=== PATIENT | female | born 1995 | race Caucasian/White ===

== ENCOUNTER → 2023-07-26 08:59 | Outpatient (CLI) | payer OTHER, MEDICAID, SELFPAY ==
[2023-07-26 11:12] LABS: HIV 1 & 2 Ab/Ag 4th Gen Combo NEGATIVE (NEGATIVE)
[2023-07-27 05:13] LABS: RPR Screen Non Reactive (Non Reactive)
[2023-07-27 15:57] LABS: Hep C Virus Ab w/Reflex Quant NEGATIVE s/c (NEGATIVE)
== END ==
PROVIDERS: PCP Family Medicine; Referring Provider Obstetrics & Gynecology; Visit Provider Obstetrics & Gynecology
DX: Z11.3 Encounter for screening for infections with a predominantly sexual mode of transmission (principal)
CPT/HCPCS: 36415; 86592; 86803; 87389

== ENCOUNTER → 2023-09-13 09:03 | Outpatient (CLI) | payer SELFPAY ==
[2023-09-14 08:37] LABS: Varicella IgG Antibody 1627 index (Immune >165)
[2023-09-18 09:12] LABS: QuantiFERON Mitogen Value >10.00 IU/mL (.); QuantiFERON TB Gold Plus Negative (Negative); QuantiFERON TB1 Ag Value 0.02 IU/mL (.); QuantiFERON TB2 Ag Value 0.01 IU/mL (.)
== END ==
PROVIDERS: PCP Family Medicine; Referring Provider Family Medicine; Visit Provider Family Medicine
DX: Z02.1 Encounter for pre-employment examination (principal)
CPT/HCPCS: 36415; 86480; 86787

== ENCOUNTER → 2023-10-03 14:12 | Outpatient (CLI) | payer SELFPAY ==
[2023-10-03 15:39] LABS: Hepatitis B Surface Antigen NEGATIVE s/c (NEGATIVE)
== END ==
LOC: LAB 14:13
PROVIDERS: PCP Family Medicine; Referring Provider Family Medicine; Visit Provider Family Medicine
DX: Z02.1 Encounter for pre-employment examination (principal)
CPT/HCPCS: 36415; 87340

== ENCOUNTER → 2023-10-12 15:32 | Outpatient (CLI) | payer SELFPAY | PROVIDERS: PCP Family Medicine; Referring Provider Family Medicine; Visit Provider Family Medicine | DX: Z02.0 Encounter for examination for admission to educational institution (principal) | CPT/HCPCS: 36415; 86706 ==

== ENCOUNTER → 2024-08-07 15:47 | Outpatient (CLI) | payer OTHER, SELFPAY ==
[2024-08-11 11:08] LABS: Chlamydia trachomatis Negative (Negative); Mycoplasma genitalium Negative (Negative); Neisseria gonorrhoeae Negative (Negative)
== END ==
LOC: LAB 15:47
PROVIDERS: PCP Family Medicine; Visit Provider Family Medicine
DX: Z11.3 Encounter for screening for infections with a predominantly sexual mode of transmission (principal); Z72.51 High risk heterosexual behavior
CPT/HCPCS: 87491; 87563; 87591

== ENCOUNTER → 2024-08-23 13:20 | Outpatient (CLI) | payer OTHER, SELFPAY ==
--- NOTE | 2024-08-23 13:22 | DI.US.S_ITS ---
PROCEDURE: US EXTREMITY NONVASC LOWER LT INDICATIONS: L inner thigh mass TECHNIQUE: Real-time scanning was performed of the area of clinical concern in the left posterior mid thigh , with image documentation. COMPARISON: None. FINDINGS: There is a superficial ovoid hyperechoic lesion measuring 1.7 x 1.8 x 0.9 cm, no internal flow. IMPRESSION: Findings most suggestive of lipoma. Dictated by: Getachew Miner M.D. on 08/24/2024 at 20:31 Approved by: Getachew Miner M.D. on 08/24/2024 at 20:32
[2024-08-26 18:39] LABS: QuantiFERON Mitogen Value >10.00 IU/mL (.); QuantiFERON Nil Value 0.03 IU/mL (.); QuantiFERON TB Gold Plus Negative (Negative); QuantiFERON TB1 Ag Value 0.06 IU/mL (.); QuantiFERON TB2 Ag Value 0.09 IU/mL (.)
== END ==
PROVIDERS: PCP Family Medicine; Referring Provider Family Medicine; Visit Provider Family Medicine
DX: R22.42 Localized swelling, mass and lump, left lower limb (principal); Z02.1 Encounter for pre-employment examination
CPT/HCPCS: 36415; 76882; 86480